=== PATIENT | female | born 1970 | race Caucasian/White ===

== ENCOUNTER 2018-08-31 08:27 | Day surgery (SDC) | payer OTHER ==
[2018-08-28 15:49] VITALS: BMI 45.5
[2018-08-31] VITALS (16 sets, daily range): BP systolic 115–147; BP diastolic 56–74; PULSE 54–84; RESP 14–20; Ht 160 cm; Wt 114.4 kg
[~2018-08-31] VITALS: Ht 160 cm; Wt 114.4 kg
[~2018-08-31 08:27] MED LIST: CEFAZOLIN 2 GM/50 ML (PMX) 50 ML IVPB ONE; DESFLURANE 15 MIN ONE; LIDOCAINE 2% (SDV) 5 ML INJ ONE; ROCURONIUM 50 MG INJ ONE; SOD CHLORIDE 0.9% 1,000 ML IV ONE; SUCCINYLCHOLINE CHLORIDE 100 MG/5 ML SYG IV ONE
[2018-08-31] MEDS ORDERED: OMEP40CA6 PO (09:33)
--- NOTE | 2018-08-31 11:50 | PREAC ---
Date/Time of Note Date/Time of Note DATE: 08/31/18 TIME: 11:49 Anesthesia Eval and Record Evaluation Time Pre-Procedure Interview DATE: 08/31/18 TIME: 11:49 Age 48 Sex female NPO: 8 hrs Preoperative diagnosis gallstones Planned procedure laproscopic cholecystectomy Past Medical History Past Medical History: Includes GI: GERD, Morbid obesity Surgery & Anesthesia Issues No known issue Meds Anticoagulation: No Beta Julius within 24 hr: No Reason Beta Julius not given: Pt. not on B-Julius Reported Medications Omeprazole* (Omeprazole*) 40 Mg Capsule.dr, 40 MG PO AC BREAKFAST, #30 CAP 08/31/18 Current Medications Sodium Chloride 1,000 ml @ 75 mls/hr [id number] ONCE IV ; Start 08/31/18 at 08:00; Stop 08/31/18 at 21:19 Meds reviewed: Yes Allergies Coded Allergies: No Known Allergy (Unverified , 08/28/18) Allergies Reviewed: Yes Labs/Studies Labs Reviewed: Reviewed by anesthesiologist test: Negative Pre-procedure Exam Last vitals Vital Signs Date Temp Pulse Resp B/P (MAP) Pulse Ox O2 O2 Flow FiO2 Time Delivery Rate 08/31/18 97.3 54 16 143/63 100 09:54 (89) Airway: Adequate mouth opening, Adequate thyromental dist Mallampati: Mallampati III Teeth: Normal Lung: Normal Heart: Normal ASA Physical Status ASA physical status: 2 Emergency: None Pre-operative Attestations Prior to commencing anesthesia and surgery, the patient was re-evaluated, there was verification of: *The patient's identity *The results of appropriate recent lab work and preoperative vital signs *The above evaluation not changing prior to induction *Anesthetic plan, risk benefits, alternative and complications discussed with patient/family; questions answered; patient/family understands, accepts and wishes to proceed. LUIS EDUARDO ISSA DO Aug 31, 2018 11:50
[2018-08-31] MEDS ORDERED: OXYCODONE/ACETAMINOPHEN (5/325) TAB PO PRN (12:00)
[2018-08-31] MEDS ORDERED: MEPERIDINE 25 MG INJ IV PRN (12:00)
[2018-08-31] MEDS ORDERED: HYDROmorphONE 1 MG/5 ML IV SYRINGE IV PRN (12:00)
[2018-08-31] MEDS ORDERED: ONDANSETRON 4 MG INJ IV PRN (12:00)
[2018-08-31] MEDS ORDERED: PROPOFOL 20 ML ONE (12:09)
[2018-08-31] MEDS ORDERED: MIDAZOLAM 1 MG/ML 2 ML INJ ONE (12:10)
[2018-08-31] MEDS ORDERED: DEXAMETHASONE 4 MG/ML 5 ML INJ ONE ×2 (12:15→12:32)
[2018-08-31] MEDS ORDERED: ROPIVACAINE 0.5 % 30 ML VIAL ONE (12:15)
[2018-08-31] MEDS ORDERED: CEFAZOLIN 1 GM INJ ONE (12:32)
[2018-08-31] MEDS ORDERED: ONDANSETRON 4 MG INJ ONE (12:32)
[2018-08-31] MEDS ORDERED: FAMOTIDINE 20 MG INJ ONE (12:33)
[2018-08-31] MEDS ORDERED: GLYCOPYRROLATE 0.4 MG INJ ONE (13:00)
[2018-08-31] MEDS ORDERED: NEOSTIGMINE 3 MG/3 ML SYRINGE ONE (13:00)
--- NOTE | 2018-08-31 13:15 | PAC ---
Date/Time of Note Date/Time of Note DATE: 08/31/18 TIME: 13:14 Post-Anesthesia Notes Post-Anesthesia Note Last documented vital signs Vital Signs Date Temp Pulse Resp B/P (MAP) Pulse Ox O2 O2 Flow FiO2 Time Delivery Rate 08/31/18 97.8 75 18 125/69 100 1314 Activity: WNL Respiratory function: WNL Cardiovascular function: WNL Mental status: Baseline Pain reasonably controlled: Yes Hydration appropriate: Yes Nausea/Vomiting absent: Yes LUIS EDUARDO ISSA DO Aug 31, 2018 13:15
[2018-08-31] MEDS: HYDROmorphONE 1 MG/5 ML IV SYRINGE IV PRN ×2 (13:21→13:28)
--- NOTE | 2018-08-31 13:24 | OPR ---
Date/Time of Note Date/Time of Note DATE: 08/31/18 TIME: 13:22 Operative Report Procedure Date: Aug 31, 2018 Preoperative Diagnosis symptomatic gallstones Postoperative Diagnosis same Operation/Procedure Performed laparoscopic cholecystectomy Surgeon see signature line Direct Chill Caster none Anesthesia Type: general Estimated Blood Loss: 0 - 10 ml's Transfusion none Specimen gallbladder Grafts/Implants none Complications none Pt Condition Post Procedure: stable Indications This is a 48-year-old female with symptomatic gallstones. She required surgical excision of her gallbladder. Risks alternatives benefits and percent were discussed the patient. Patient expressed understanding consents to the operation. Procedure Description Patient is taken to the OR and prepped and draped in usual sterile fashion. Surgical time was performed. IV antibiotics were given. Infraumbilical transverse incision was made with a 15 blade. Dissection with cautery was carried onto the fascia. Fascia was grasped with [place]'s and divided with c urved Pimentel scissors. 0 Vicryl U stitch was placed into the fascia. Branch trocar was introduced. Pneumoperitoneum is established. Midepigastric 12 mm optical trochars placed under direct visualization. Right upper quadrant upper flank 5 mm optical trochars were placed under direct visualization. Upon initial inspection there are some adhesions to the gallbladder which are taken down bluntly. The gallbladder was grasped the fundus and retracted in a lateral cephalad direction. [place] graspers were used to dissect out the cystic duct and cystic artery. The critical view was established. The cystic duct is divided with 3 clips proximally clipped distal and the division was performed laparoscopic scissors. The cystic artery was handled in a similar fashion with 3 clips proximally clipped distal and the division was performed laparoscopic scissors. The gallbladder was taken of the gallbladder bed. Good hemostasis established. The gallbladder is retrieved using Endo Catch bag. Ports removed under direct position. 0 Vicryl U stitch at the fascia was tied down. Skin is closed using skin socorro. A tap block was provided by the anesthesiologist. Dry dressings were applied. Malia HALEY Aug 31, 2018 13:24
[2018-08-31] MEDS ORDERED: HYDROCODONE/APAP (5/325) TAB PO ONE (13:30)
== END 2018-08-31 16:20 | disposition home or self-care (01) ==
LOC: SDS 08:27
PROVIDERS: ATTEND Surgery
DX: K80.10 Calculus of gallbladder with chronic cholecystitis without obstruction (principal); E66.01 Morbid (severe) obesity due to excess calories; Z68.41 Body mass index [BMI] 40.0-44.9, adult
CPT/HCPCS: 47562; 84703; 88304; J0690; J1100; J1170; J2175; J2250; J2405; J2710; J2795; J3010; Z7512; Z7610

== ENCOUNTER 2018-09-03 10:03 | Emergency (ER) | payer OTHER ==
[~2018-09-03] VITALS: Ht 165.1 cm; Wt 112.2 kg
[~2018-09-03 10:03] MED LIST changes: -CEFAZOLIN 2 GM/50 ML (PMX) 50 ML IVPB ONE; -DESFLURANE 15 MIN ONE; -LIDOCAINE 2% (SDV) 5 ML INJ ONE; +OMEP40CA6 PO; -ROCURONIUM 50 MG INJ ONE; -SOD CHLORIDE 0.9% 1,000 ML IV ONE; -SUCCINYLCHOLINE CHLORIDE 100 MG/5 ML SYG IV ONE
[2018-09-03 11:15] VITALS: Ht 165.1 cm; Wt 112.2 kg
--- NOTE | 2018-09-03 12:22 | ERD ---
ER Documentation Chief Complaint Chief Complaint HAD GALLBLADDER SURGEY ON FRIDAY; ONE INCISION LEAKING FLUID ROS All systems reviewed and are negative except as per history of present illness. Medications Home Meds Reported Medications Omeprazole* (Omeprazole*) 40 Mg Capsule.dr, 40 MG PO AC BREAKFAST, #30 CAP 08/31/18 Allergies Allergies: Coded Allergies: No Known Allergy (Unverified , 09/03/18) PMhx/Soc History of Surgery: Yes (GASTRIC SLEEVE 2015 TIMES ONE) Anesthesia Reaction: Yes (N/V) Hx Neurological Disorder: No Hx Respiratory Disorders: No Hx Cardiac Disorders: No Hx Psychiatric Problems: No Hx Miscellaneous Medical Probl: No Hx Alcohol Use: Yes (SOCIAL) Hx Substance Use: No Hx Tobacco Use: No Smoking Status: Never smoker Physical Exam Vitals Vital Signs Date Temp Pulse Resp B/P (MAP) Pulse Ox O2 O2 Flow FiO2 Time Delivery Rate 09/03/18 97.9 64 18 142/65 99 11:15 (90) Physical Exam Const: No acute distress Head: Atraumatic Eyes: Normal Conjunctiva ENT: Normal External Ears, Nose and Mouth. Neck: Full range of motion. No meningismus. Resp: Clear to auscultation bilaterally Cardio: Regular rate and rhythm, no murmurs Abd: Soft, non tender, non distended. Normal bowel sounds Skin: No petechiae or rashes Back: No midline or flank tenderness Ext: No cyanosis, or edema Neur: Awake and alert Psych: Normal Mood and Affect Departure Diagnosis: Primary Impression: Encounter for wound re-check Additional Impression: S/P cholecystectomy Condition: Stable Patient Instructions: Wound Care Additional Instructions: Muchas jordan por [facility] para reveles servicio. Esperamos que en reveles visita a la vania de emergencia reveles problema medico haya sido solucionado y que se sienta mucho mejor. Para estar seguros que reveles mejoria sigue en proceso, le pedimos el favor de hacer primo dilia de seguimiento medico con reveles doctor primario en los proximos 2-4 proctor. Lleve con usted estos documentos y las medicinas recetadas. Si therese sintomas empeoran, NO SE ESPERE, por favor regrese a vania de emergencia INMEDIATAMENTE. En calvin que usted no tenga un mdico de atencin primaria: Llame al mdico o clnica comunitaria de referencia que aparece abajo orly las horas de consultorio para hacer primo dilia para que le vean. CLINICAS: [facility] [phone] [facility] [phone] [facility] [phone] [facility]. [facility] [phone] [facility]. [place] [phone] [facility]. [phone] ANTONIETA SINGH MD Sep 03, 2018 12:22
== END 2018-09-03 13:30 | disposition home or self-care (01) ==
LOC: FTE 10:03
DX: Z48.01 Encounter for change or removal of surgical wound dressing (principal); Z90.49 Acquired absence of other specified parts of digestive tract
CPT/HCPCS: 99281

== ENCOUNTER 2019-05-04 18:34 | Emergency (ER) | payer OTHER ==
[~2019-05-04] VITALS: Ht 160 cm; Wt 117.8 kg
[~2019-05-04 18:34] MED LIST changes: +NITR-58 PO; +OMEP40CA38 PO; -OMEP40CA6 PO; +PHEN-538 PO
[2019-05-04 18:37] VITALS: BP 137/79; PULSE 69; RESP 16; Ht 160 cm; Wt 117.8 kg
[2019-05-04] MEDS ORDERED: PHENAZOPYRIDINE 100 MG TAB PO ONE (19:30)
== END 2019-05-04 19:38 | disposition home or self-care (01) ==
LOC: FTE 18:34
DX: N30.00 Acute cystitis without hematuria (principal)
CPT/HCPCS: 81001; 81025; 87086; Z7502; Z7610; 81003; 99283